=== PATIENT | male | born 1960 | race Caucasian/White ===

== ENCOUNTER 2024-01-10 14:15 | Inpatient (IN) | payer OTHER ==
[~2024-01-10] VITALS: Ht 172.7 cm; Wt 120.7 kg
[2024-01-10 15:38] LABS: BASOPHILS % 0.5 % (0.0-2.0); EOSINOPHILS % 1.8 % (0.0-5.0); HEMATOCRIT. 38.8 % (42.0-52.0); HEMOGLOBIN. 13.4 g/dL (14.0-18.0); LYMPHOCYTES % 12.8 % (20.0-50.0); MEAN CORPUSCULAR HEMOGLOBIN 30.1 pg (28.0-32.0); MEAN CORPUSCULAR HGB CONC 34.5 g/dL (31.0-37.0); MEAN CORPUSCULAR VOLUME 87.1 fL (80.0-94.0); MEAN PLATELET VOLUME 8.1 fl (7.4-10.4); MONOCYTES % 5.2 % (2.0-8.0); NEUTROPHILS % 79.7 % (40.0-76.0); PLATELET 238 x1000/uL (130-400); RED BLOOD CELL COUNT 4.46 mill/uL (4.7-6.1); RED CELL DISTRIBUTION WIDTH 14.1 % (11.6-14.6); WHITE BLOOD COUNT 7.9 x1000/uL (4.5-11.0)
[2024-01-10 15:43] LABS: CHLORIDE 107 mEq/L (98-107); SODIUM 140 mEq/L (136-145)
[2024-01-10 15:44] LABS: CALCIUM 8.9 mg/dL (8.7-10.4); CARBON DIOXIDE 25 mEq/L (21-32)
[2024-01-10 15:45] LABS: PROTHROMBIN TIME 10.8 sec (9.6-11.0)
[2024-01-10 15:49] LABS: CREATININE 0.8 mg/dL (0.6-1.3); GLUCOSE 111 mg/dL (70-105); UREA NITROGEN BLOOD 19 mg/dL (9-23)
[2024-01-10 15:51] LABS: ALANINE AMINOTRANSFERASE 42 IU/L (10-49); ALBUMIN 4.3 g/dL (3.2-4.8); ASPARTATE AMINOTRANSFERASE 31 IU/L (<34); BILIRUBIN TOTAL 0.3 mg/dL (0.1-1.0)
[2024-01-10 15:54] LABS: BILIRUBIN DIRECT < 0.1 mg/dL (<=3.0)
[2024-01-10 15:55] LABS: TROPONIN I HIGH SENSITIVITY 118 ng/L (3.0-53)
[2024-01-10] MEDS ORDERED: FUROSEMIDE 40MG/4ML VIAL IVP ONE (18:00)
[2024-01-10] MEDS: FUROSEMIDE 40MG/4ML VIAL IVP NR (20:12)
[2024-01-10] MEDS: ASPIRIN 325MG EC TABLET PO NR (20:12)
[2024-01-10] MEDS: ENOXAPARIN 150MG/ML SYR SUBCUT SCH (20:13)
[2024-01-10 21:30] LABS: CLARITY URINE CLEAR (CLEAR); COLOR URINE YELLOW (YELLOW); GLUCOSE URINE NEGATIVE (NEGATIVE); KETONES URINE NEGATIVE (NEGATIVE); LEUKOCYTE ESTERASE URINE NEGATIVE (NEGATIVE); NITRITE URINE NEGATIVE (NEGATIVE); OCCULT BLOOD URINE NEGATIVE (NEGATIVE); PROTEIN URINE NEGATIVE (NEGATIVE); SPECIFIC GRAVITY URINE 1.019 (1.005-1.030); UROBILINOGEN URINE 0.2 E.U./dL (0.2-1.0)
[2024-01-11 02:00] VITALS: BP 140/89; PULSE 76; RESP 20; TEMP 36.696
[2024-01-11 04:00] VITALS: BP 152/86; PULSE 65; RESP 19; TEMP 36.3918; O2SAT 97
[2024-01-11 07:57] VITALS: BP 146/83; PULSE 62; RESP 17; TEMP 36.16956; O2SAT 97
[2024-01-11] MEDS ORDERED: MAGNESIUM/ALUMINUM HYDROXIDE/SIMETHICONE 30ML UDC PO PRN (08:00)
[2024-01-11] MEDS ORDERED: DOCUSATE SODIUM 100MG CAPSULE PO PRN (08:00)
[2024-01-11] MEDS ORDERED: ONDANSETRON HCL 4MG/2ML INJ IV PRN (08:00)
[2024-01-11] MEDS ORDERED: POTASSIUM CHLORIDE 20MEQ TABLET SR PO PRN (08:00)
[2024-01-11] MEDS ORDERED: ACETAMINOPHEN 325MG TABLET PO PRN (08:00)
[2024-01-11] MEDS ORDERED: HYDROCODONE/ACETAMINOPHEN 5/325MG TABLET PO PRN (08:00)
[2024-01-11] MEDS ORDERED: NALOXONE HCL 0.4MG/ML VIAL IV PRN (08:30)
[2024-01-11] MEDS ORDERED: FUROSEMIDE 20MG/2ML VIAL IVP SCH (09:00)
[2024-01-11] MEDS: ASPIRIN 81MG TABLET PO SCH (09:29)
[2024-01-11] MEDS: PANTOPRAZOLE SODIUM 40 MG/VIAL IV SCH (09:29)
[2024-01-11] MEDS: FUROSEMIDE 40MG/4ML VIAL IVP SCH ×2 (09:29→18:23)
[2024-01-11] MEDS: SPIRONOLACTONE 25MG TABLET PO SCH (09:30)
[2024-01-11 11:15] LABS: CHLORIDE 103 mEq/L (98-107); POTASSIUM 3.9 mEq/L (3.5-5.1); SODIUM 137 mEq/L (136-145)
[2024-01-11 11:16] LABS: CALCIUM 9.5 mg/dL (8.7-10.4); CARBON DIOXIDE 27 mEq/L (21-32)
[2024-01-11 11:17] LABS: BASOPHILS % 0.4 % (0.0-2.0); EOSINOPHILS % 3.1 % (0.0-5.0); HEMATOCRIT. 39.8 % (42.0-52.0); HEMOGLOBIN. 13.2 g/dL (14.0-18.0); LYMPHOCYTES % 19.8 % (20.0-50.0); MEAN CORPUSCULAR HEMOGLOBIN 29.2 pg (28.0-32.0); MEAN CORPUSCULAR HGB CONC 33.3 g/dL (31.0-37.0); MEAN CORPUSCULAR VOLUME 87.6 fL (80.0-94.0); MEAN PLATELET VOLUME 8.4 fl (7.4-10.4); MONOCYTES % 3.8 % (2.0-8.0); NEUTROPHILS % 72.9 % (40.0-76.0); PLATELET 235 x1000/uL (130-400); RED BLOOD CELL COUNT 4.54 mill/uL (4.7-6.1); RED CELL DISTRIBUTION WIDTH 14.1 % (11.6-14.6); WHITE BLOOD COUNT 5.9 x1000/uL (4.5-11.0)
[2024-01-11 11:21] LABS: CREATININE 0.8 mg/dL (0.6-1.3); GLUCOSE 143 mg/dL (70-105); UREA NITROGEN BLOOD 15 mg/dL (9-23)
[2024-01-11 11:23] LABS: ALANINE AMINOTRANSFERASE 44 IU/L (10-49); ALBUMIN 4.6 g/dL (3.2-4.8); ASPARTATE AMINOTRANSFERASE 32 IU/L (<34); BILIRUBIN TOTAL 0.9 mg/dL (0.1-1.0); PROTEIN TOTAL 7.6 g/dL (6.0-8.3)
[2024-01-11 11:31] LABS: TROPONIN I HIGH SENSITIVITY 306 ng/L (3.0-53)
[2024-01-11] MEDS: HYDRALAZINE HCL 50MG TABLET PO SCH (14:20)
[2024-01-11 16:00] VITALS: BP 115/75; PULSE 62; RESP 18; TEMP 36.6696; O2SAT 94
[2024-01-11 20:00] VITALS: BP 117/75; PULSE 80; RESP 19; TEMP 36.44736; O2SAT 97
[2024-01-12] VITALS: BP 120/87; PULSE 78; RESP 18; TEMP 36.50292; O2SAT 97
[2024-01-12 04:00] VITALS: BP 119/73; PULSE 70; RESP 18; TEMP 36.3918; O2SAT 97
[2024-01-12 04:39] LABS: *AMPHETAMINES SCREEN URINE NEGATIVE (NEGATIVE); *BARBITURATES SCREEN URINE NEGATIVE (NEGATIVE); *BENZODIAZEPINES SCREEN URINE NEGATIVE (NEGATIVE); *COCAINE SCREEN URINE NEGATIVE (NEGATIVE); CANNABINOID URINE SCREEN NEGATIVE (NEGATIVE); ECSTASY MDMA SCREEN URINE NEGATIVE (NEGATIVE); METHADONE URINE SCREEN NEGATIVE (NEGATIVE); OPIATES URINE SCREEN NEGATIVE (NEGATIVE); PHENCYCLIDINE URINE SCREEN NEGATIVE (NEGATIVE)
[2024-01-12 06:44] LABS: BASOPHILS % 0.3 % (0.0-2.0); CHLORIDE 102 mEq/L (98-107); EOSINOPHILS % 3.1 % (0.0-5.0); HEMATOCRIT. 41.7 % (42.0-52.0); HEMOGLOBIN. 13.5 g/dL (14.0-18.0); MEAN CORPUSCULAR HEMOGLOBIN 28.2 pg (28.0-32.0); MEAN CORPUSCULAR HGB CONC 32.5 g/dL (31.0-37.0); MEAN CORPUSCULAR VOLUME 86.7 fL (80.0-94.0); MEAN PLATELET VOLUME 7.9 fl (7.4-10.4); MONOCYTES % 7.8 % (2.0-8.0); NEUTROPHILS % 69.8 % (40.0-76.0); PLATELET 244 x1000/uL (130-400); POTASSIUM 3.7 mEq/L (3.5-5.1); RED BLOOD CELL COUNT 4.81 mill/uL (4.7-6.1); SODIUM 138 mEq/L (136-145); WHITE BLOOD COUNT 7.5 x1000/uL (4.5-11.0)
[2024-01-12 06:45] LABS: CALCIUM 9.8 mg/dL (8.7-10.4); CARBON DIOXIDE 29 mEq/L (21-32)
[2024-01-12 06:50] LABS: CREATININE 0.9 mg/dL (0.6-1.3); GLUCOSE 102 mg/dL (70-105); TRIGLYCERIDE 126 mg/dL (0-150); UREA NITROGEN BLOOD 19 mg/dL (9-23)
[2024-01-12 06:51] LABS: ALANINE AMINOTRANSFERASE 42 IU/L (10-49); LDL CHOLESTEROL 176 mg/dL (5-100); PROTEIN TOTAL 7.5 g/dL (6.0-8.3); T4 FREE 1.35 ng/dL (0.89-1.76)
[2024-01-12 06:52] LABS: ALBUMIN 4.6 g/dL (3.2-4.8); ASPARTATE AMINOTRANSFERASE 29 IU/L (<34); BILIRUBIN DIRECT 0.2 mg/dL (<=3.0); BILIRUBIN TOTAL 0.9 mg/dL (0.1-1.0); CHOLESTEROL 223 mg/dL (<200); HDL CHOLESTEROL 39 mg/dL (>55); PHOSPHORUS 4.5 mg/dL (2.5-4.9); THYROID STIMULATING HORMONE 1.88 uIU/mL (0.55-4.78)
[2024-01-12 07:25] VITALS: BP 120/70; PULSE 80; RESP 18; TEMP 36.78072; O2SAT 94
[2024-01-12 08:14] LABS: TROPONIN I HIGH SENSITIVITY 140 ng/L (3.0-53)
[2024-01-12 11:33] VITALS: BP 139/68; PULSE 69; RESP 19; TEMP 36.83628; O2SAT 97
[2024-01-12] MEDS: PANTOT AC/MIN OIL/PET HY-PHL OINT (AQUAPHOR) TOP SCH (12:00)
[2024-01-12 15:46] VITALS: BP 139/79; PULSE 71; RESP 19; TEMP 36.72516; O2SAT 98
[2024-01-12 20:00] VITALS: BP 132/73; PULSE 85; RESP 18; TEMP 36.33624; O2SAT 97
[2024-01-12] MEDS: ATORVASTATIN CALCIUM 40MG TABLET PO SCH (21:32)
[2024-01-13 00:07] VITALS: BP 123/73; PULSE 72; RESP 18; TEMP 36.22512; O2SAT 96
[2024-01-13 03:56] VITALS: BP 128/70; PULSE 86; RESP 19; TEMP 36.72516; O2SAT 96
[2024-01-13 07:03] LABS: BASOPHILS % 0.3 % (0.0-2.0); HEMATOCRIT. 41.5 % (42.0-52.0); HEMOGLOBIN. 13.8 g/dL (14.0-18.0); LYMPHOCYTES % 16.4 % (20.0-50.0); MEAN CORPUSCULAR HEMOGLOBIN 28.6 pg (28.0-32.0); MEAN CORPUSCULAR HGB CONC 33.2 g/dL (31.0-37.0); MEAN PLATELET VOLUME 7.9 fl (7.4-10.4); MONOCYTES % 9.2 % (2.0-8.0); NEUTROPHILS % 71.1 % (40.0-76.0); PLATELET 235 x1000/uL (130-400); RED BLOOD CELL COUNT 4.83 mill/uL (4.7-6.1); WHITE BLOOD COUNT 6.8 x1000/uL (4.5-11.0)
[2024-01-13 07:11] LABS: CARBON DIOXIDE 27 mEq/L (21-32); CHLORIDE 100 mEq/L (98-107); POTASSIUM 3.7 mEq/L (3.5-5.1); SODIUM 137 mEq/L (136-145)
[2024-01-13 07:16] LABS: CREATININE 0.9 mg/dL (0.6-1.3)
[2024-01-13 07:17] LABS: GLUCOSE 103 mg/dL (70-105); UREA NITROGEN BLOOD 26 mg/dL (9-23)
[2024-01-13 07:18] LABS: ALANINE AMINOTRANSFERASE 42 IU/L (10-49); ALBUMIN 4.7 g/dL (3.2-4.8); ASPARTATE AMINOTRANSFERASE 26 IU/L (<34)
[2024-01-13 07:19] LABS: BILIRUBIN DIRECT 0.3 mg/dL (<=3.0); BILIRUBIN TOTAL 1.1 mg/dL (0.1-1.0); PHOSPHORUS 5.7 mg/dL (2.5-4.9); PROTEIN TOTAL 7.7 g/dL (6.0-8.3)
[2024-01-13] MEDS ORDERED: HEPARIN 1000 UNITS/ML 10ML ONE (07:38)
[2024-01-13] MEDS ORDERED: DIPHENHYDRAMINE 50MG/ML VIAL ONE (07:38)
[2024-01-13] MEDS ORDERED: VERAPAMIL HCL 2.5 MG/1 ML 2ML VIAL IV ONE (07:38)
[2024-01-13] MEDS ORDERED: IODIXANOL 320MG/ML 100 ML BOTTLE IV ONE (07:39)
[2024-01-13] MEDS ORDERED: LIDOCAINE HCL 1% 10 MG/ML 10ML VIAL ONE (07:39)
[2024-01-13 08:00] VITALS: BP 125/72; PULSE 78; RESP 19; TEMP 36.78072; O2SAT 99
[2024-01-13] MEDS ORDERED: MIDAZOLAM HCL 2 MG/2 ML VIAL ONE (08:22)
[2024-01-13] MEDS ORDERED: FENTANYL CITRATE/PF 50MCG/ML 2ML VIAL ONE (08:22)
[2024-01-13] MEDS: FAMOTIDINE 20MG/2ML VIAL IV SCH (09:00)
[2024-01-13] MEDS ORDERED: ATROPINE SULFATE 1MG/10ML SYR IV PRN (09:45)
[2024-01-13] MEDS ORDERED: ACETAMINOPHEN 325MG TABLET PO PRN (09:45)
[2024-01-13 12:00] VITALS: BP 114/94; PULSE 66; RESP 18; TEMP 36.6696; O2SAT 95
[2024-01-13 16:00] VITALS: BP 129/81; PULSE 76; RESP 12; TEMP 36.72516; O2SAT 96
[2024-01-13 20:00] VITALS: BP 147/84; PULSE 86; RESP 20; RESP 27; TEMP 36.50292; O2SAT 93; O2SAT 95
[2024-01-13] MEDS: ALLOPURINOL 300 MG TABLET PO SCH (21:05)
[2024-01-14] VITALS: BP 115/83; PULSE 76; RESP 20; TEMP 36.83628; O2SAT 96
[2024-01-14 04:00] VITALS: BP 161/98; PULSE 78; RESP 12; TEMP 36.78072; O2SAT 95
[2024-01-14] MEDS: CLONIDINE 0.1MG TABLET PO PRN (04:58)
[2024-01-14 07:36] LABS: BASOPHILS % 0.3 % (0.0-2.0); EOSINOPHILS % 1.6 % (0.0-5.0); HEMATOCRIT. 45.7 % (42.0-52.0); HEMOGLOBIN. 14.7 g/dL (14.0-18.0); LYMPHOCYTES % 14.6 % (20.0-50.0); MEAN CORPUSCULAR HEMOGLOBIN 27.8 pg (28.0-32.0); MEAN CORPUSCULAR HGB CONC 32.2 g/dL (31.0-37.0); MEAN CORPUSCULAR VOLUME 86.2 fL (80.0-94.0); MEAN PLATELET VOLUME 8.2 fl (7.4-10.4); MONOCYTES % 8.5 % (2.0-8.0); PLATELET 248 x1000/uL (130-400); RED CELL DISTRIBUTION WIDTH 14.3 % (11.6-14.6); WHITE BLOOD COUNT 7.5 x1000/uL (4.5-11.0)
[2024-01-14 07:42] LABS: CHLORIDE 99 mEq/L (98-107); POTASSIUM 3.8 mEq/L (3.5-5.1); SODIUM 136 mEq/L (136-145)
[2024-01-14 07:43] LABS: CARBON DIOXIDE 28 mEq/L (21-32)
[2024-01-14 07:48] LABS: GLUCOSE 107 mg/dL (70-105)
[2024-01-14 07:49] LABS: UREA NITROGEN BLOOD 28 mg/dL (9-23)
[2024-01-14 08:00] VITALS: BP_SYST 132; BP_SYST 144; BP_DIAS 91; PULSE 102; PULSE 96; RESP 19; RESP 23; TEMP 36.61404; TEMP 36.6696; O2SAT 93; O2SAT 98
[2024-01-14 12:00] VITALS: BP 140/80; PULSE 87; RESP 20; TEMP 36.83628; O2SAT 99
[2024-01-14 16:00] VITALS: BP 153/93; PULSE 89; RESP 18; TEMP 36.83628; O2SAT 97
[2024-01-14 20:00] VITALS: BP 118/92; PULSE 78; RESP 19; TEMP 36.9474; O2SAT 96
[2024-01-15] VITALS (7 sets, daily range): BP systolic 110–152; BP diastolic 70–108; PULSE 69–96; RESP 14–25; TEMP 36.55848–36.83628; O2SAT 94–99
[2024-01-15] MEDS: CARVEDILOL 3.125 MG TABLET PO SCH (09:32)
[2024-01-15] MEDS: DOCUSATE SODIUM 100MG CAPSULE PO SCH (20:37)
[2024-01-15] MEDS: CHLORHEXIDINE GLUCONATE 4% EXTERNAL USE TOP SCH (20:49)
[2024-01-15] MEDS ORDERED: BISACODYL 10MG SUPP PR PRN (21:00)
[2024-01-15] MEDS ORDERED: ASCORBIC ACID 500 MG TABLET PO SCH (21:00)
[2024-01-16] VITALS (60 sets, daily range): BP systolic 62–141; BP diastolic 40–85; PULSE 77–111; RESP 12–42; TEMP 34.66944–37.33632; O2SAT 91–100
[2024-01-16] MEDS ORDERED: PAPAVERINE HCL 180MG in SODIUM CHLORIDE 0.9% 24ML IV PRN (05:00)
[2024-01-16] MEDS ORDERED: DEL NIDO CARDIOPLEGIA 1,000 ML (PREMIX) IV NR ×2 (05:00)
[2024-01-16] MEDS ORDERED: LR with VERAPAMIL, NTG, HEPARIN, SODIUM BICARBONATE (Soln) IV PRN (05:00)
[2024-01-16] MEDS ORDERED: AMINOCAPROIC ACID 5,000 MG in SODIUM CHLORIDE 0.9% 250 ML IV PRN (05:00)
[2024-01-16] MEDS ORDERED: NOREPINEPHRINE 8MG/250ML PMX 250 ML IV PRN (05:00)
[2024-01-16] MEDS ORDERED: CEFAZOLIN 2GM/100ML 100 ML IV NR ×2 (05:00)
[2024-01-16] MEDS ORDERED: DOBUTAMINE 250 MG/250 ML PREMIX IV PRN (05:00)
[2024-01-16] MEDS ORDERED: NICARDIPINE 40MG/200ML PREMIX 200 ML IV PRN (05:00)
[2024-01-16] MEDS: BLOOD SUGAR DIAGNOSTIC STRIP TEST NR (05:10)
[2024-01-16 05:54] LABS: BASOPHILS % 0.5 % (0.0-2.0); EOSINOPHILS % 3.1 % (0.0-5.0); HEMATOCRIT. 42.8 % (42.0-52.0); HEMOGLOBIN. 14.5 g/dL (14.0-18.0); LYMPHOCYTES % 16.5 % (20.0-50.0); MEAN CORPUSCULAR HEMOGLOBIN 29.2 pg (28.0-32.0); MEAN CORPUSCULAR VOLUME 86.1 fL (80.0-94.0); MONOCYTES % 10.5 % (2.0-8.0); NEUTROPHILS % 69.4 % (40.0-76.0); PLATELET 260 x1000/uL (130-400); RED BLOOD CELL COUNT 4.97 mill/uL (4.7-6.1); RED CELL DISTRIBUTION WIDTH 13.8 % (11.6-14.6); WHITE BLOOD COUNT 7.2 x1000/uL (4.5-11.0)
[2024-01-16 06:07] LABS: CARBON DIOXIDE 28 mEq/L (21-32); CHLORIDE 99 mEq/L (98-107); POTASSIUM 3.7 mEq/L (3.5-5.1); SODIUM 133 mEq/L (136-145)
[2024-01-16 06:08] LABS: CALCIUM 9.9 mg/dL (8.7-10.4)
[2024-01-16] MEDS ORDERED: POLYMYXIN B SULFATE 500000 UNITS/VIAL ONE (06:09)
[2024-01-16] MEDS ORDERED: THROMBIN (BOVINE) 5000 UNITS/VIAL TOP ONE (06:09)
[2024-01-16] MEDS ORDERED: SKIN ADHESIVE 0.7 GM EA TOP ONE (06:10)
[2024-01-16] MEDS ORDERED: PHENYLEPHRINE 50MG/250ML PMX 250 ML IV ONE (06:10)
[2024-01-16 06:13] LABS: GLUCOSE 109 mg/dL (70-105); UREA NITROGEN BLOOD 30 mg/dL (9-23)
[2024-01-16] MEDS ORDERED: SEVOFLURANE 250 ML LIQUID INH ONE (06:16)
[2024-01-16] MEDS ORDERED: NITROGLYCERIN 50MG PREMIX 250 ML IV ONE (06:17)
[2024-01-16] MEDS ORDERED: HEPARIN 1000 UNITS/ML 10ML ONE ×2 (06:17→09:49)
[2024-01-16] MEDS ORDERED: LIDOCAINE HCL 2% 5ML SYRINGE IV ONE (06:49)
[2024-01-16] MEDS ORDERED: PHENYLEPHRINE HCL 10MG/ML 1ML IV ONE (06:51)
[2024-01-16] MEDS ORDERED: CALCIUM CHLORIDE 1GM/10ML SYR IV ONE (06:54)
[2024-01-16] MEDS: CHLORHEXIDINE GLUCONATE 4% EXTERNAL USE TOP SCH (06:56)
[2024-01-16] MEDS ORDERED: PROPOFOL 200MG/20ML VIAL IV ONE ×3 (06:59→08:22)
[2024-01-16] MEDS ORDERED: ROCURONIUM BROMIDE 10MG/ML VIAL 5ML IV ONE ×3 (06:59→09:15)
[2024-01-16] MEDS ORDERED: FENTANYL CITRATE/PF 50MCG/ML 2ML VIAL ONE (06:59)
[2024-01-16] MEDS ORDERED: VANCOMYCIN 1GM/200ML PMX (BAXTER) IV NR (07:00)
[2024-01-16] MEDS ORDERED: SUGAMMADEX SODIUM 200MG/2ML VIAL IV ONE (07:08)
[2024-01-16] MEDS ORDERED: ACETAMINOPHEN 1000MG/100ML 100 ML IV NR (07:15)
[2024-01-16] MEDS ORDERED: HEPARIN 10,000 UNITS/ML VIAL ONE (09:00)
[2024-01-16] MEDS ORDERED: METOCLOPRAMIDE HCL 10MG/2ML VIAL ONE (09:37)
[2024-01-16] MEDS ORDERED: FUROSEMIDE 100MG/10ML VIAL ONE (09:39)
[2024-01-16] MEDS ORDERED: PROTAMINE SULFATE 10MG/ML VIAL 25ML IV ONE (09:50)
[2024-01-16] MEDS ORDERED: KCL 10MEQ/50ML PREMIX 200 ML IV PRN (10:00)
[2024-01-16] MEDS ORDERED: DEXTROSE 50% WATER 50ML SYRINGE IV PRN ×2 (10:00)
[2024-01-16] MEDS ORDERED: MAGNESIUM 1 G PREMIX 100 ML IV PRN ×2 (10:00→10:30)
[2024-01-16] MEDS ORDERED: SODIUM BICARBONATE 8.4% 50MEQ/50ML SYR IV ONE (10:02)
[2024-01-16] MEDS ORDERED: ONDANSETRON HCL 4MG/2ML INJ ONE (10:06)
[2024-01-16] MEDS ORDERED: AMINOCAPROIC ACID 250 MG/ML 20ML VIAL ONE (10:17)
[2024-01-16] MEDS ORDERED: SODIUM CHLORIDE 0.9% 500 ML IV PRN (10:30)
[2024-01-16] MEDS ORDERED: MAGNESIUM SULFATE 3 GM in DEXT 5% WATER 100 ML IV PRN (10:30)
[2024-01-16] MEDS ORDERED: OXYCODONE HCL/ACETAMINOPHEN 5/325MG TABLET PO PRN (10:30)
[2024-01-16] MEDS ORDERED: MAGNESIUM 2 G PREMIX 50 ML IV PRN (10:30)
[2024-01-16] MEDS ORDERED: CALCIUM CHLORIDE 3,000 MG in DEXT 5% WATER 250 ML IV PRN (10:30)
[2024-01-16] MEDS ORDERED: CALCIUM CHLORIDE 5,000 MG in DEXT 5% WATER 500 ML IV PRN (10:30)
[2024-01-16] MEDS ORDERED: ALBUMIN HUMAN 25GM/100ML (25%) IV PRN (10:30)
[2024-01-16] MEDS ORDERED: ONDANSETRON HCL 4MG/2ML INJ IV PRN (10:30)
[2024-01-16] MEDS ORDERED: ACETAMINOPHEN 325MG TABLET PO PRN (10:30)
[2024-01-16] MEDS ORDERED: ALBUMIN HUMAN 12.5G/250ML (5%) IV ONE (10:46)
[2024-01-16] MEDS ORDERED: NITROGLYCERIN 50MG PREMIX 250 ML IV PRN (11:00)
[2024-01-16] MEDS: FENTANYL CITRATE/PF 50MCG/ML 2ML VIAL IV NR (11:08)
[2024-01-16] MEDS: KETOROLAC 30MG/ML VIAL IV NR (11:09)
[2024-01-16 11:29] LABS: BASOPHILS % 0.6 % (0.0-2.0); EOSINOPHILS % 0.9 % (0.0-5.0); HEMATOCRIT. 41.9 % (42.0-52.0); HEMOGLOBIN. 13.5 g/dL (14.0-18.0); LYMPHOCYTES % 13.8 % (20.0-50.0); MEAN CORPUSCULAR HEMOGLOBIN 27.8 pg (28.0-32.0); MEAN CORPUSCULAR HGB CONC 32.1 g/dL (31.0-37.0); MEAN CORPUSCULAR VOLUME 86.6 fL (80.0-94.0); MEAN PLATELET VOLUME 8.6 fl (7.4-10.4); MONOCYTES % 6.7 % (2.0-8.0); PLATELET 228 x1000/uL (130-400); RED BLOOD CELL COUNT 4.83 mill/uL (4.7-6.1); RED CELL DISTRIBUTION WIDTH 13.8 % (11.6-14.6); WHITE BLOOD COUNT 19.4 x1000/uL (4.5-11.0)
[2024-01-16 11:32] LABS: BG BASE EXCESS -2.9 mmol/L (-2.0-3.0); BG CARBOXYHEMOGLOBIN 1.1 % (0.5-1.5); BG DEOXYHEMOGLOBIN 8.9 % (0.0-5.0); BG FRACTION INSPIRED OXYGEN 60; BG HCO3 ACT 23.6 mmol/L (21.0-28.0); BG METHEMOGLOBIN 0.3 % (0.5-1.5); BG OXYHEMOGLOBIN 89.7 % (94.0-98.0); BG PCO2 47.8 mmHg (35.0-48.0); BG PH 7.312 (7.350-7.450); BG PO2 68.4 mmHg (83.0-108.0); BG SAMPLE SITE ALINE; BG TOTAL HEMOGLOBIN 14.4 g/dL (13.5-17.5); BG VENT MODE MASK - SIMPLE
[2024-01-16] MEDS: MORPHINE SULFATE 2 MG/ML INJ (NOT FOR IM USE) IV PRN ×2 (11:32→19:13)
[2024-01-16] MEDS: DOPAMINE 400MG/250ML PREMIX 250 ML IV PRN ×2 (11:36→17:02)
[2024-01-16] MEDS: EPINEPHRINE 5 MG in DEXT 5% WATER 250 ML IV PRN (11:37)
[2024-01-16] MEDS: INSULIN REGULAR 100 U/100 ML PREMIX IV PRN (11:38)
[2024-01-16 11:42] LABS: CHLORIDE 102 mEq/L (98-107); POTASSIUM 3.4 mEq/L (3.5-5.1); SODIUM 137 mEq/L (136-145)
[2024-01-16 11:43] LABS: CARBON DIOXIDE 25 mEq/L (21-32)
[2024-01-16 11:44] LABS: CALCIUM 9.1 mg/dL (8.7-10.4)
[2024-01-16] MEDS: DEXT 5%/0.45% NACL 1000ML 1,000 ML IV SCH (11:46)
[2024-01-16 11:48] LABS: CREATININE 1.2 mg/dL (0.6-1.3); GLUCOSE 233 mg/dL (70-105); UREA NITROGEN BLOOD 31 mg/dL (9-23)
[2024-01-16] MEDS: BLOOD SUGAR DIAGNOSTIC STRIP TEST SCH (11:57)
[2024-01-16] MEDS: IPRATROPIUM/ALBUTEROL 0.5-3(2.5)MG/3ML NEB HHN SCH (12:50)
[2024-01-16] MEDS: KCL 10MEQ/50ML PREMIX 150 ML IV PRN (14:08)
[2024-01-16] MEDS: CEFAZOLIN 1000MG PREMIX 50 ML IV SCH (14:18)
[2024-01-16] MEDS: MAGNESIUM SULFATE 3 GM in DEXT 5% WATER 100 ML IV PRN (15:56)
[2024-01-16] MEDS ORDERED: NALOXONE HCL 0.4MG/ML VIAL IV PRN (16:15)
[2024-01-16] MEDS: ALBUMIN HUMAN 12.5G/250ML (5%) IV NR (16:58)
[2024-01-16] MEDS ORDERED: CALCIUM GLUCONATE 100MG/ML 10ML VIAL IV NR (17:00)
[2024-01-16] MEDS: CLOPIDOGREL 75MG TABLET PO NR (17:02)
[2024-01-16] MEDS: ASPIRIN 81MG EC TABLET PO SCH (17:02)
[2024-01-16] MEDS: EPINEPHRINE 5 MG in DEXT 5% WATER 245 ML IV PRN (18:23)
[2024-01-16 18:48] LABS: DIFFERENTIAL COMMENT 1; HEMATOCRIT. 36.2 % (42.0-52.0); MEAN CORPUSCULAR HEMOGLOBIN 28.5 pg (28.0-32.0); MEAN CORPUSCULAR VOLUME 86.2 fL (80.0-94.0); MEAN PLATELET VOLUME 7.8 fl (7.4-10.4); PLATELET 181 x1000/uL (130-400); RED CELL DISTRIBUTION WIDTH 13.7 % (11.6-14.6); WHITE BLOOD COUNT 11.9 x1000/uL (4.5-11.0)
[2024-01-16 18:53] LABS: CHLORIDE 104 mEq/L (98-107); POTASSIUM 4.1 mEq/L (3.5-5.1); SODIUM 137 mEq/L (136-145)
[2024-01-16 18:54] LABS: CARBON DIOXIDE 25 mEq/L (21-32)
[2024-01-16 18:59] LABS: CREATININE 1.2 mg/dL (0.6-1.3); GLUCOSE 150 mg/dL (70-105); UREA NITROGEN BLOOD 32 mg/dL (9-23)
[2024-01-16 19:01] LABS: PHOSPHORUS 3.7 mg/dL (2.5-4.9)
[2024-01-16] MEDS: CALCIUM GLUCONATE 3,000 MG in DEXT 5% WATER 70 ML IV NR (19:06)
[2024-01-16] MEDS: INSULIN REGULAR 100U/100ML PMX 100 ML IV SCH (19:14)
[2024-01-16] MEDS: MAGNESIUM 2 G PREMIX 50 ML IV PRN (19:56)
[2024-01-16 20:02] LABS: PLATELET ESTIMATE NORMAL
[2024-01-16] MEDS: BACITRACIN 14GM TUBE TOP SCH (20:28)
[2024-01-16] MEDS: DOCUSATE SODIUM 100MG CAPSULE PO SCH (21:13)
[2024-01-16 23:39] LABS: CARBON DIOXIDE 26 mEq/L (21-32); CHLORIDE 102 mEq/L (98-107); POTASSIUM 4.1 mEq/L (3.5-5.1); SODIUM 135 mEq/L (136-145)
[2024-01-16 23:42] LABS: HEMATOCRIT. 33.5 % (42.0-52.0); HEMOGLOBIN. 10.9 g/dL (14.0-18.0); MEAN CORPUSCULAR HEMOGLOBIN 28.4 pg (28.0-32.0); MEAN CORPUSCULAR HGB CONC 32.5 g/dL (31.0-37.0); MEAN CORPUSCULAR VOLUME 87.3 fL (80.0-94.0); MEAN PLATELET VOLUME 8.1 fl (7.4-10.4); PLATELET 208 x1000/uL (130-400); RED BLOOD CELL COUNT 3.84 mill/uL (4.7-6.1); RED CELL DISTRIBUTION WIDTH 13.7 % (11.6-14.6); WHITE BLOOD COUNT 11.9 x1000/uL (4.5-11.0)
[2024-01-16 23:45] LABS: GLUCOSE 149 mg/dL (70-105); UREA NITROGEN BLOOD 29 mg/dL (9-23)
[2024-01-16 23:53] LABS: DIFFERENTIAL COMMENT 1
[2024-01-17] VITALS (102 sets, daily range): BP systolic 100–149; BP diastolic 55–83; PULSE 81–110; RESP 10–40; TEMP 37.44744–38.0586; O2SAT 92–100
[2024-01-17 05:36] LABS: HEMATOCRIT. 35.8 % (42.0-52.0); HEMOGLOBIN. 11.9 g/dL (14.0-18.0); MEAN CORPUSCULAR HEMOGLOBIN 28.6 pg (28.0-32.0); MEAN CORPUSCULAR HGB CONC 33.3 g/dL (31.0-37.0); MEAN CORPUSCULAR VOLUME 85.8 fL (80.0-94.0); MEAN PLATELET VOLUME 7.8 fl (7.4-10.4); PLATELET 228 x1000/uL (130-400); RED BLOOD CELL COUNT 4.17 mill/uL (4.7-6.1); RED CELL DISTRIBUTION WIDTH 13.9 % (11.6-14.6); WHITE BLOOD COUNT 11.3 x1000/uL (4.5-11.0)
[2024-01-17 05:37] LABS: CARBON DIOXIDE 26 mEq/L (21-32); CHLORIDE 101 mEq/L (98-107); POTASSIUM 4.2 mEq/L (3.5-5.1); SODIUM 133 mEq/L (136-145)
[2024-01-17 05:38] LABS: CALCIUM 8.7 mg/dL (8.7-10.4)
[2024-01-17 05:43] LABS: CREATININE 0.8 mg/dL (0.6-1.3); GLUCOSE 129 mg/dL (70-105); UREA NITROGEN BLOOD 24 mg/dL (9-23)
[2024-01-17 05:45] LABS: PHOSPHORUS 3.8 mg/dL (2.5-4.9)
[2024-01-17] MEDS: ALBUMIN HUMAN 12.5G/250ML (5%) IV PRN (05:54)
[2024-01-17] MEDS: ACETAMINOPHEN 325MG TABLET PO PRN (05:55)
[2024-01-17] MEDS: MIDODRINE HCL 2.5MG TABLET PO SCH (05:56)
[2024-01-17 05:58] LABS: DIFFERENTIAL COMMENT 1
[2024-01-17] MEDS: KETOROLAC 15MG/ML VIAL IV PRN (06:59)
[2024-01-17] MEDS: CALCIUM GLUCONATE 3,000 MG in DEXT 5% WATER 70 ML IV NR (07:33)
[2024-01-17 07:39] LABS: PLATELET ESTIMATE NORMAL
[2024-01-17] MEDS: FAMOTIDINE 20MG/2ML VIAL IV SCH (08:46)
[2024-01-17] MEDS: CLOPIDOGREL 75MG TABLET PO SCH (08:46)
[2024-01-17] MEDS: TAMSULOSIN HCL 0.4MG SR CAPSULE PO SCH (08:47)
[2024-01-17 09:40] LABS: HEMATOCRIT. 33.7 % (42.0-52.0); HEMOGLOBIN. 11.2 g/dL (14.0-18.0); MEAN CORPUSCULAR HEMOGLOBIN 28.6 pg (28.0-32.0); MEAN CORPUSCULAR HGB CONC 33.2 g/dL (31.0-37.0); MEAN CORPUSCULAR VOLUME 86.2 fL (80.0-94.0); MEAN PLATELET VOLUME 7.7 fl (7.4-10.4); PLATELET 180 x1000/uL (130-400); RED BLOOD CELL COUNT 3.91 mill/uL (4.7-6.1); RED CELL DISTRIBUTION WIDTH 14.3 % (11.6-14.6); WHITE BLOOD COUNT 9.2 x1000/uL (4.5-11.0)
[2024-01-17 09:51] LABS: DIFFERENTIAL COMMENT 1
[2024-01-17 10:00] LABS: CHLORIDE 100 mEq/L (98-107); POTASSIUM 4.3 mEq/L (3.5-5.1); SODIUM 132 mEq/L (136-145)
[2024-01-17 10:01] LABS: CALCIUM 9.2 mg/dL (8.7-10.4); CARBON DIOXIDE 26 mEq/L (21-32)
[2024-01-17 10:06] LABS: CREATININE 0.7 mg/dL (0.6-1.3); GLUCOSE 109 mg/dL (70-105); UREA NITROGEN BLOOD 23 mg/dL (9-23)
[2024-01-17] MEDS: MAGNESIUM 2 G PREMIX 50 ML IV NR (11:21)
[2024-01-17] MEDS: FUROSEMIDE 40MG/4ML VIAL IVP SCH (11:21)
[2024-01-17 16:19] LABS: PLATELET ESTIMATE NORMAL
[2024-01-17 16:29] LABS: PLATELET ESTIMATE NORMAL
[2024-01-17 17:24] LABS: BASOPHILS % 0.3 % (0.0-2.0); EOSINOPHILS % 0.3 % (0.0-5.0); HEMATOCRIT. 31.2 % (42.0-52.0); HEMOGLOBIN. 10.6 g/dL (14.0-18.0); LYMPHOCYTES % 11.2 % (20.0-50.0); MEAN CORPUSCULAR HEMOGLOBIN 29.2 pg (28.0-32.0); MEAN CORPUSCULAR HGB CONC 33.9 g/dL (31.0-37.0); MEAN CORPUSCULAR VOLUME 86.2 fL (80.0-94.0); MEAN PLATELET VOLUME 7.7 fl (7.4-10.4); MONOCYTES % 10.8 % (2.0-8.0); NEUTROPHILS % 77.4 % (40.0-76.0); PLATELET 153 x1000/uL (130-400); RED BLOOD CELL COUNT 3.62 mill/uL (4.7-6.1); WHITE BLOOD COUNT 8.3 x1000/uL (4.5-11.0)
[2024-01-17 17:32] LABS: CHLORIDE 99 mEq/L (98-107); SODIUM 131 mEq/L (136-145)
[2024-01-17 17:33] LABS: CALCIUM 8.9 mg/dL (8.7-10.4); CARBON DIOXIDE 26 mEq/L (21-32)
[2024-01-17 17:38] LABS: CREATININE 0.7 mg/dL (0.6-1.3); GLUCOSE 107 mg/dL (70-105); UREA NITROGEN BLOOD 22 mg/dL (9-23)
[2024-01-17 17:40] LABS: PHOSPHORUS 3.3 mg/dL (2.5-4.9)
[2024-01-17] MEDS: KCL 10MEQ/50ML PREMIX 100 ML IV PRN (18:09)
[2024-01-17 23:08] LABS: BASOPHILS % 0.3 % (0.0-2.0); EOSINOPHILS % 0.7 % (0.0-5.0); HEMATOCRIT. 30.4 % (42.0-52.0); HEMOGLOBIN. 10.3 g/dL (14.0-18.0); LYMPHOCYTES % 8.4 % (20.0-50.0); MEAN CORPUSCULAR HEMOGLOBIN 29.2 pg (28.0-32.0); MEAN CORPUSCULAR HGB CONC 33.7 g/dL (31.0-37.0); MEAN CORPUSCULAR VOLUME 86.7 fL (80.0-94.0); MEAN PLATELET VOLUME 7.9 fl (7.4-10.4); MONOCYTES % 9.2 % (2.0-8.0); NEUTROPHILS % 81.4 % (40.0-76.0); PLATELET 148 x1000/uL (130-400); RED BLOOD CELL COUNT 3.51 mill/uL (4.7-6.1); RED CELL DISTRIBUTION WIDTH 14.1 % (11.6-14.6); WHITE BLOOD COUNT 8.6 x1000/uL (4.5-11.0)
[2024-01-17 23:12] LABS: CHLORIDE 102 mEq/L (98-107); POTASSIUM 3.7 mEq/L (3.5-5.1); SODIUM 132 mEq/L (136-145)
[2024-01-17 23:13] LABS: CALCIUM 8.3 mg/dL (8.7-10.4); CARBON DIOXIDE 26 mEq/L (21-32)
[2024-01-17 23:18] LABS: CREATININE 0.7 mg/dL (0.6-1.3); GLUCOSE 134 mg/dL (70-105); UREA NITROGEN BLOOD 22 mg/dL (9-23)
[2024-01-17 23:20] LABS: PHOSPHORUS 2.7 mg/dL (2.5-4.9)
[2024-01-18] VITALS (61 sets, daily range): BP systolic 99–153; BP diastolic 53–101; PULSE 89–116; RESP 13–46; TEMP 37.05852–37.66968; O2SAT 91–99
[2024-01-18] MEDS: OXYCODONE HCL/ACETAMINOPHEN 5/325MG TABLET PO PRN (01:10)
[2024-01-18 05:32] LABS: BASOPHILS % 0.2 % (0.0-2.0); EOSINOPHILS % 0.7 % (0.0-5.0); HEMATOCRIT. 29.7 % (42.0-52.0); HEMOGLOBIN. 10.1 g/dL (14.0-18.0); LYMPHOCYTES % 11.7 % (20.0-50.0); MEAN CORPUSCULAR HEMOGLOBIN 29.1 pg (28.0-32.0); MEAN CORPUSCULAR VOLUME 85.6 fL (80.0-94.0); MEAN PLATELET VOLUME 8.2 fl (7.4-10.4); MONOCYTES % 9.7 % (2.0-8.0); NEUTROPHILS % 77.7 % (40.0-76.0); PLATELET 142 x1000/uL (130-400); RED BLOOD CELL COUNT 3.47 mill/uL (4.7-6.1); WHITE BLOOD COUNT 9.3 x1000/uL (4.5-11.0)
[2024-01-18 05:37] LABS: CHLORIDE 100 mEq/L (98-107); POTASSIUM 4.2 mEq/L (3.5-5.1); SODIUM 132 mEq/L (136-145)
[2024-01-18 05:38] LABS: CARBON DIOXIDE 26 mEq/L (21-32)
[2024-01-18 05:43] LABS: CREATININE 0.8 mg/dL (0.6-1.3); GLUCOSE 104 mg/dL (70-105)
[2024-01-18 05:44] LABS: UREA NITROGEN BLOOD 25 mg/dL (9-23)
[2024-01-18] MEDS ORDERED: DEXTROSE 50% WATER 50ML SYRINGE IV PRN (06:45)
[2024-01-18] MEDS: FUROSEMIDE 40MG/4ML VIAL IVP ONE (07:03)
[2024-01-18] MEDS: FUROSEMIDE 40MG/4ML VIAL IVP NR ×2 (07:20→21:02)
[2024-01-18] MEDS: INSULIN LISPRO 100 UNITS/ML SUBCUT SCH (07:48)
[2024-01-18] MEDS: BLOOD SUGAR DIAGNOSTIC STRIP TEST SCH (07:48)
[2024-01-18 10:02] LABS: BASOPHILS % 0.2 % (0.0-2.0); EOSINOPHILS % 0.6 % (0.0-5.0); HEMATOCRIT. 31.2 % (42.0-52.0); HEMOGLOBIN. 10.6 g/dL (14.0-18.0); LYMPHOCYTES % 10.3 % (20.0-50.0); MEAN CORPUSCULAR HGB CONC 33.9 g/dL (31.0-37.0); MEAN CORPUSCULAR VOLUME 85.6 fL (80.0-94.0); MEAN PLATELET VOLUME 8.2 fl (7.4-10.4); MONOCYTES % 7.2 % (2.0-8.0); NEUTROPHILS % 81.7 % (40.0-76.0); PLATELET 169 x1000/uL (130-400); RED BLOOD CELL COUNT 3.64 mill/uL (4.7-6.1); RED CELL DISTRIBUTION WIDTH 14.2 % (11.6-14.6); WHITE BLOOD COUNT 8.8 x1000/uL (4.5-11.0)
[2024-01-18 10:09] LABS: CHLORIDE 99 mEq/L (98-107); POTASSIUM 3.9 mEq/L (3.5-5.1); SODIUM 131 mEq/L (136-145)
[2024-01-18 10:10] LABS: CALCIUM 9.2 mg/dL (8.7-10.4); CARBON DIOXIDE 25 mEq/L (21-32)
[2024-01-18 10:15] LABS: CREATININE 0.8 mg/dL (0.6-1.3); GLUCOSE 147 mg/dL (70-105); UREA NITROGEN BLOOD 23 mg/dL (9-23)
[2024-01-18] MEDS: NITROGLYCERIN 0.4MG TABLET SL SL PRN (10:59)
[2024-01-18] MEDS ORDERED: IBUPROFEN 600MG TABLET PO PRN (11:30)
[2024-01-18] MEDS: KETOROLAC 15MG/ML VIAL IV NR (11:43)
[2024-01-19] VITALS (30 sets, daily range): BP systolic 104–155; BP diastolic 66–96; PULSE 83–108; RESP 13–36; TEMP 36.50292–37.33632; O2SAT 91–99
[2024-01-19 06:26] LABS: BASOPHILS % 0.2 % (0.0-2.0); EOSINOPHILS % 2.5 % (0.0-5.0); MEAN CORPUSCULAR HEMOGLOBIN 29.1 pg (28.0-32.0); MEAN CORPUSCULAR HGB CONC 33.4 g/dL (31.0-37.0); MEAN CORPUSCULAR VOLUME 87.1 fL (80.0-94.0); MEAN PLATELET VOLUME 8.2 fl (7.4-10.4); NEUTROPHILS % 75.3 % (40.0-76.0); PLATELET 187 x1000/uL (130-400); RED BLOOD CELL COUNT 3.44 mill/uL (4.7-6.1); RED CELL DISTRIBUTION WIDTH 13.9 % (11.6-14.6); WHITE BLOOD COUNT 8.4 x1000/uL (4.5-11.0)
[2024-01-19 06:29] LABS: CARBON DIOXIDE 28 mEq/L (21-32); CHLORIDE 97 mEq/L (98-107); POTASSIUM 4.3 mEq/L (3.5-5.1); SODIUM 131 mEq/L (136-145)
[2024-01-19 06:30] LABS: CALCIUM 9.2 mg/dL (8.7-10.4)
[2024-01-19 06:35] LABS: CREATININE 0.7 mg/dL (0.6-1.3); GLUCOSE 115 mg/dL (70-105); UREA NITROGEN BLOOD 26 mg/dL (9-23)
[2024-01-19] MEDS: MAGNESIUM 2 G PREMIX 50 ML IV NR (08:23)
[2024-01-19] MEDS: FUROSEMIDE 40MG/4ML VIAL IVP NR (08:23)
[2024-01-19] MEDS ORDERED: OXYC1TAB5 PO (19:51)
[2024-01-19] MEDS ORDERED: TAMS-11 PO (19:51)
[2024-01-19] MEDS ORDERED: CLOP-31 PO (19:51)
[2024-01-19] MEDS ORDERED: LIP40 PO (19:51)
[2024-01-19] MEDS ORDERED: ASPI-1406 PO (19:51)
[2024-01-20] VITALS (8 sets, daily range): BP systolic 104–121; BP diastolic 76–77; PULSE 90–101; RESP 17–32; TEMP 36.72516–37.28076; O2SAT 96–100
== END 2024-01-20 10:09 | disposition home health service (06) | DRG 233 ==
LOC: ER 14:15 → EDBEDREQ 17:30 → 7WST 18:27 → EDBEDREQ 18:34 → 3WST 01-13 09:41 → CVICU 01-16 08:48 → 3WST 01-19 09:33
PROVIDERS: ADMIT Family Medicine Adult Medicine; ATTEND Family Medicine Adult Medicine
PROC: 4A023N7 Measurement of Cardiac Sampling and Pressure, Left Heart, Percutaneous Approach (ICD-10-PCS; principal; 2024-01-13)
PROC: B2111ZZ Fluoroscopy of Multiple Coronary Arteries using Low Osmolar Contrast (ICD-10-PCS; 2024-01-13)
PROC: 02100Z9 Bypass Coronary Artery, One Artery from Left Internal Mammary, Open Approach (ICD-10-PCS; 2024-01-16)
PROC: 021109W Bypass Coronary Artery, Two Arteries from Aorta with Autologous Venous Tissue, Open Approach (ICD-10-PCS; 2024-01-16)
PROC: 06BQ4ZZ Excision of Left Saphenous Vein, Percutaneous Endoscopic Approach (ICD-10-PCS; 2024-01-16)
DX: I21.4 Non-ST elevation (NSTEMI) myocardial infarction (principal); I50.33 Acute on chronic diastolic (congestive) heart failure; J96.00 Acute respiratory failure, unspecified whether with hypoxia or hypercapnia; I25.10 Atherosclerotic heart disease of native coronary artery without angina pectoris; Z68.39 Body mass index [BMI] 39.0-39.9, adult; E66.9 Obesity, unspecified; Z20.822 Contact with and (suspected) exposure to COVID-19; I87.8 Other specified disorders of veins; G89.29 Other chronic pain; M54.50 Low back pain, unspecified; I11.0 Hypertensive heart disease with heart failure; E87.6 Hypokalemia; D50.9 Iron deficiency anemia, unspecified; R73.9 Hyperglycemia, unspecified; D72.829 Elevated white blood cell count, unspecified; G35 Multiple sclerosis; L85.3 Xerosis cutis
CPT/HCPCS: 36415; 36600; 71045; 80048; 80053; 80061; 80076; 80305; 81003; 82375; 82805; 82962; 83036; 83735; 83880; 84100; 84132; 84145; 84439; 84443; 84484; 85025; 85347; 86850; 86900; 86920; 87426; 93005; 93306; 93458; 93880; 93923; 93970; 94640; 97110; 97116; 97162; 97166; 97530; 97535; 99291; C1729; C1751; C1758; C1769; C1887; C1893; J0610; J0690; J1200; J1265; J1644; J1650; J1815; J1885; J1940; J2250; J2270; J2405; J2470; J2704; J2720; J2765; J3010; J3370; J3475; J3480; J3490; J7050; J7060; L3908; P9041; Q9967; J0131